=== PATIENT | female | born 2000 | race Caucasian/White ===

== ENCOUNTER 2024-07-18 16:02 | Outpatient (CLI) | payer OTHER ==
[~2024-07-18] VITALS: Ht 167.6 cm; Wt 106.1 kg
[2024-07-18 14:25] VITALS: BP 115/72
[2024-07-18 14:37] VITALS: BP 115/72
[~2024-07-18 16:02] MED LIST: PRENATAL TABLE1 EAC4
[2024-07-18 18:08] LABS: PH,URINE 5.5 (5.0-8.0); URINE APPEARANCE Clear; URINE BILIRRUBIN Negative (NEGATIVE); URINE BLOOD Negative; URINE COLOR Yellow; URINE GLUCOSE Negative (NEGATIVE); URINE KETONE Negative (NEGATIVE); URINE LEUKOCYTE Negative; URINE NITRATE Negative; URINE PROTEIN Negative (NEGATIVE); URINE UROBILINOGEN 0.2 E.U./dl
[2024-07-18 18:09] LABS: HEMATOCRIT 35.3 % (36.0-45.00); HEMOGLOBIN 12.2 g/dL (12.0-15.00); MEAN CELL VOLUME 78.3 fL (80.00-100.00); MEAN CORPUSCULAR HGB CONC 34.5 g/dl (32.0-36.0); PLATELET COUNT 175 K/uL (150-450); RED BLOOD COUNT 4.51 M/uL (4.00-6.00); RED CELL DISTRIBUTION WIDTH 15.2 % (11.5-14.5)
[2024-07-18 18:12] LABS: URINE BACTERIA 852.9 uL (0.0-1933); URINE EPITHELIAL CELLS 28.5 uL (0.0-38.8); URINE RBC 6.2 uL (0.0-20.8); URINE WBC 4.9 uL (0.0-23.2)
[2024-07-18 18:31] LABS: URINE CAST 0.61 uL (0.0-1.40)
[2024-07-18 18:42] LABS: ALBUMIN 2.7 gm/dL (3.4-5.0); BILIRUBIN TOTAL 0.24 mg/dL (0.3-1.2); CALCIUM 9.3 mg/dL (8.5-10.1); CREATININE SERUM 0.81 mg/dL (0.55-1.02); GFR 86.15; GLOBULINA 3.6 G/DL (2.4-3.5); POTASSIUM 4.35 mEq/L (3.5-5.1); TOTAL PROTEIN 6.3 gm/dL (6.4-8.2)
[2024-07-18 21:29] VITALS: BP 125/86
== END 2024-07-18 21:29 | disposition left against medical advice (07) ==
LOC: OBS/DEL 16:02
PROVIDERS: ATTEND Obstetrics & Gynecology
DX: O13.3 Gestational [pregnancy-induced] hypertension without significant proteinuria, third trimester (principal); Z3A.36 36 weeks gestation of pregnancy

== ENCOUNTER 2024-07-30 16:30 | Inpatient (IN) | payer OTHER ==
[~2024-07-30] VITALS: Ht 167.6 cm; Wt 107.0 kg
[2024-07-30 16:30] VITALS: BP 128/69
[2024-07-30 18:14] LABS: HEMOGLOBIN 12.9 g/dL (12.0-15.00); MEAN CELL VOLUME 78.2 fL (80.00-100.00); MEAN CORPUSCULAR HEMOGLOBIN 27.2 pg (27.00-32.0); MEAN CORPUSCULAR HGB CONC 34.8 g/dl (32.0-36.0); PLATELET COUNT 159 K/uL (150-450); RED BLOOD COUNT 4.73 M/uL (4.00-6.00); RED CELL DISTRIBUTION WIDTH 16.2 % (11.5-14.5)
[2024-07-30 18:15] LABS: PH,URINE 5.5 (5.0-8.0); URINE APPEARANCE Clear; URINE BILIRRUBIN Negative (NEGATIVE); URINE BLOOD Negative; URINE COLOR Yellow; URINE GLUCOSE Negative (NEGATIVE); URINE KETONE Negative (NEGATIVE); URINE LEUKOCYTE Negative; URINE NITRATE Negative; URINE UROBILINOGEN 0.2 E.U./dl
[2024-07-30 18:18] LABS: URINE BACTERIA 2180.7 uL (0.0-1933); URINE CAST 3.51 uL (0.0-1.40); URINE EPITHELIAL CELLS 42.1 uL (0.0-38.8); URINE RBC 6.5 uL (0.0-20.8); URINE WBC 14.2 uL (0.0-23.2)
[2024-07-30 18:31] LABS: URINE CRYSTALS FEW /HPF; URINE MUCUS SCANT; URINE PROTEIN 100 (NEGATIVE)
[2024-07-30 18:53] LABS: ALBUMIN 2.7 gm/dL (3.4-5.0); BILIRUBIN TOTAL 0.25 mg/dL (0.3-1.2); CALCIUM 9.3 mg/dL (8.5-10.1); CREATININE SERUM 0.96 mg/dL (0.55-1.02); GFR 70.81; GLOBULINA 3.7 G/DL (2.4-3.5); POTASSIUM 4.45 mEq/L (3.5-5.1); TOTAL PROTEIN 6.4 gm/dL (6.4-8.2)
[2024-07-30 18:55] VITALS: BP 134/86
[2024-07-30 23:57] VITALS: BP 135/88
[2024-07-31] VITALS (7 sets, daily range): BP systolic 122–139; BP diastolic 69–88; O2SAT 98–99
[2024-07-31] MEDS ORDERED: MISOPROSTOL 25 MCG/4 ML GEL.W.APPL VAG STA ×2 (08:15→16:59)
[2024-07-31] MEDS ORDERED: AMPICILLIN SODIUM 2,000 MG VIAL IV ONE (08:15)
[2024-07-31 09:05] LABS: HEMATOCRIT 38.2 % (36.0-45.00); HEMOGLOBIN 13.2 g/dL (12.0-15.00); MEAN CELL VOLUME 77.9 fL (80.00-100.00); MEAN CORPUSCULAR HEMOGLOBIN 26.9 pg (27.00-32.0); MEAN CORPUSCULAR HGB CONC 34.5 g/dl (32.0-36.0); PLATELET COUNT 164 K/uL (150-450); RED CELL DISTRIBUTION WIDTH 16.5 % (11.5-14.5)
[2024-07-31 09:31] LABS: INR 0.94; PARTIAL THROMBOPLASTIN TIME 26.8 SECONDS (22.0-34.0); PROTHROMBIN TIME 10.3 SECONDS (9.0-11.5)
[2024-07-31 09:32] LABS: ALBUMIN 2.9 gm/dL (3.4-5.0); BILIRUBIN TOTAL 0.28 mg/dL (0.3-1.2); CALCIUM 9.8 mg/dL (8.5-10.1); CREATININE SERUM 0.81 mg/dL (0.55-1.02); GFR 86.15; GLOBULINA 3.9 G/DL (2.4-3.5); POTASSIUM 4.65 mEq/L (3.5-5.1); TOTAL PROTEIN 6.8 gm/dL (6.4-8.2)
[2024-07-31] MEDS ORDERED: AMPICILLIN SODIUM 1,000 MG VIAL IV SCH (12:00)
[2024-07-31] MEDS ORDERED: RINGERS SOLUTION,LACTATED 1,000 ML IV SCH (15:15)
[2024-07-31] MEDS ORDERED: MISOPROSTOL 25 MCG/4 ML GEL.W.APPL ONE (22:00)
[2024-07-31] MEDS ORDERED: MISOPROSTOL 25 MCG/4 ML GEL.W.APPL VAG ONE (23:00)
[2024-08-01 03:21] VITALS: BP 130/75
[2024-08-01 07:32] VITALS: BP 148/84
[2024-08-01] MEDS ORDERED: OXYTOCIN 500 ML IV SCH (07:45)
[2024-08-01 11:15] VITALS: BP 125/56
[2024-08-01 14:50] VITALS: BP 148/88
[2024-08-01] MEDS ORDERED: MORPHINE SULFATE 4 MG/ML CARTRIDGE IV ONE (15:00)
[2024-08-01 15:39] VITALS: BP 148/77
[2024-08-01] MEDS ORDERED: CEFAZOLIN SODIUM 1,000 MG VIAL ONE (16:41)
[2024-08-01] MEDS ORDERED: CEFAZOLIN SODIUM 1,000 MG VIAL IV ONE (17:00)
[2024-08-01] MEDS ORDERED: OXYTOCIN 10 UNITS/ML VIAL ONE (17:23)
[2024-08-01] MEDS ORDERED: ERYTHROMYCIN BASE OPHT 1GM EACH TUBE OP ONE (17:23)
[2024-08-01] MEDS ORDERED: RINGERS SOLUTION,LACTATED 1,000 ML IV SCH (19:00)
[2024-08-01] MEDS ORDERED: MORPHINE SULFATE 4 MG/ML CARTRIDGE IV PRN (19:00)
[2024-08-01] MEDS ORDERED: OXYTOCIN 1,000 ML IV SCH (19:00)
[2024-08-01 19:34] LABS: ABG PH 7.316 (7.35-7.45); ABG pCO2 42.4 mmHg (35-45); BASE EXCESS -4.8 mmol/l; BICARBONATE 21.1 mmol/l (23-25); SaO2 24.6 %; Tco2 22.4 mmol/l
[2024-08-01 19:40] LABS: ABG PO2 19.4 mmHg (80-100)
[2024-08-01 19:41] LABS: o2 21 %; puncture site UMBILICAL
[2024-08-01] MEDS ORDERED: MORPHINE SULFATE 4 MG/ML VIAL IV ONE ×2 (19:50→20:20)
[2024-08-01] MEDS ORDERED: KETOROLAC TROMETHAMINE 30 MG VIAL IM ONE (20:45)
[2024-08-01] MEDS ORDERED: SIMETHICONE 125 MG CAPSULE PO SCH (21:00)
[2024-08-01 23:14] LABS: MEAN CELL VOLUME 77.5 fL (80.00-100.00); MEAN CORPUSCULAR HEMOGLOBIN 26.7 pg (27.00-32.0); MEAN CORPUSCULAR HGB CONC 34.5 g/dl (32.0-36.0); PLATELET COUNT 158 K/uL (150-450); RED BLOOD COUNT 4.38 M/uL (4.00-6.00); RED CELL DISTRIBUTION WIDTH 16.3 % (11.5-14.5)
[2024-08-01 23:24] LABS: HEMOGLOBIN 11.7 g/dL (12.0-15.00)
[2024-08-02] VITALS: BP 144/79
[2024-08-02 08:00] VITALS: BP 117/85
[2024-08-02] MEDS ORDERED: DOCUSATE SODIUM 100MG CAP PO SCH (09:00)
[2024-08-02] MEDS ORDERED: IBUprofen 800 MG TABLET PO PRN (09:00)
[2024-08-02] MEDS ORDERED: KETOROLAC TROMETHAMINE 30 MG VIAL IM NR (16:45)
[2024-08-02 19:18] VITALS: BP 134/88
[2024-08-02 23:49] VITALS: BP 123/74
[2024-08-03 05:34] VITALS: BP 128/85
[2024-08-03 09:13] VITALS: BP 129/78
[2024-08-03] MEDS ORDERED: ACETAMINOPHEN 500 MG GEL..CAP PO STA (10:19)
[2024-08-03 16:00] VITALS: BP 131/81
[2024-08-03 20:00] VITALS: BP 133/83
[2024-08-04 00:16] VITALS: BP 108/63
[2024-08-04 04:30] VITALS: BP 117/71
[2024-08-04 08:00] VITALS: BP 140/80
[2024-08-04 12:20] VITALS: BP 130/80; O2SAT 100
[2024-08-04 13:16] LABS: HEMATOCRIT 30.8 % (36.0-45.00); HEMOGLOBIN 10.5 g/dL (12.0-15.00); MEAN CELL VOLUME 80.9 fL (80.00-100.00); MEAN CORPUSCULAR HEMOGLOBIN 27.5 pg (27.00-32.0); PLATELET COUNT 204 K/uL (150-450); RED BLOOD COUNT 3.81 M/uL (4.00-6.00); RED CELL DISTRIBUTION WIDTH 16.6 % (11.5-14.5)
== END 2024-08-04 14:19 | disposition home or self-care (01) | DRG 788 ==
LOC: OBS/DEL 16:30 → LDR 07-31 08:21 → OB/GYN 07-31 08:21 → OBS/DEL 07-31 08:21 → LDR 07-31 23:10 → OB/GYN 08-01 19:44
PROVIDERS: Obstetrics & Gynecology; ADMIT Obstetrics & Gynecology; ATTEND Obstetrics & Gynecology
PROC: 3E0P7VZ Introduction of Hormone into Female Reproductive, Via Natural or Artificial Opening (ICD-10-PCS; 2024-07-31)
PROC: 4A1HXCZ Monitoring of Products of Conception, Cardiac Rate, External Approach (ICD-10-PCS; 2024-07-31)
PROC: 3E033VJ Introduction of Other Hormone into Peripheral Vein, Percutaneous Approach (ICD-10-PCS; 2024-08-01)
PROC: 10D00Z1 Extraction of Products of Conception, Low, Open Approach (ICD-10-PCS; principal; 2024-08-02)
DX: O61.0 Failed medical induction of labor (principal); O14.04 Mild to moderate pre-eclampsia, complicating childbirth; Z3A.38 38 weeks gestation of pregnancy; Z37.0 Single live birth; Z20.822 Contact with and (suspected) exposure to COVID-19